=== PATIENT | female | born 1975 ===

== ENCOUNTER 2020-10-07 17:05 | Outpatient (CLI) | payer OTHER | END 2020-10-07 17:15 | disposition home or self-care (01) | LOC: RAD 17:05 | DX: M51.37 Other intervertebral disc degeneration, lumbosacral region (principal); M99.01 Segmental and somatic dysfunction of cervical region; M99.02 Segmental and somatic dysfunction of thoracic region; M99.03 Segmental and somatic dysfunction of lumbar region ==

== ENCOUNTER 2021-01-14 14:52 | Emergency (ER) | payer OTHER ==
[~2021-01-14] VITALS: Ht 162.6 cm; Wt 52.2 kg
[2021-01-14] MEDS ORDERED: PROTONIX40 MG PO (15:22)
[2021-01-14] MEDS ORDERED: SYNTHROID50 MCG PO (15:22)
[2021-01-14] MEDS ORDERED: LEVSIN/SL0.125 MG (15:23)
== END 2021-01-14 23:47 | disposition home or self-care (01) ==
LOC: ER 14:52
DX: K52.9 Noninfective gastroenteritis and colitis, unspecified (principal)